=== PATIENT | female | born 1995 | race Caucasian/White ===

== ENCOUNTER 2019-07-07 11:13 | Inpatient (IN) ==
[2019-07-06 11:57] LABS: Basophils % 0.2 %; Eosinophils # 0.1 K/mcL (0.0-0.6); Eosinophils % 0.5 %; Hematocrit 36.7 % (35.3-44.9); Hemoglobin 11.7 g/dL (11.5-15.4); Immature Granulocytes % 0.3 % (0-4); Lymphocytes % 22.3 %; Mean Corpuscular HGB Conc 31.9 g/dL (31.6-35.5); Mean Corpuscular Hemoglobin 27.4 pg (28.0-33.3); Mean Corpuscular Volume 85.9 fL (83.0-100.0); Mean Platelet Volume 10.3 fL (9.4-12.4); Monocytes # 0.4 K/mcL (0.0-1.3); Monocytes % 3.9 %; Neutrophils # 6.6 K/mcL (1.6-8.9); Platelet Count 259 K/mcL (140-400); Red Blood Count 4.27 M/mcL (3.82-4.97); Red Cell Distribution Width 14.3 % (11.5-14.5); Segmented Neutrophils % 72.8 %; White Blood Count 9.1 K/mcL (4.3-11.1)
[2019-07-06 12:08] LABS: Amphetamine Screen,Urine Negative ng/mL (Cutoff=1000); Barbiturate Screen,Urine Negative ng/mL (Cutoff=200); Benzodiazepines Screen,Urine Negative ng/mL (Cutoff=200); Cannabinoid Screen,Urine Negative ng/mL (Cutoff = 50); Cocaine Screen,Urine Negative ng/mL (Cutoff= 300); Opiate Screen,Urine Negative ng/mL (Cutoff=300); Phencyclidine Screen,Urine Negative ng/mL (Cutoff=25)
[2019-07-06] MEDS: Ringers Solution, Lactated 1,000 ML IVC SCH ×2 (12:56→17:29)
[~2019-07-07 11:13] MED LIST: *HR* FentaNYL (PF) 100 MCG/2 ML VIAL EP ONE; *HR* FentaNYL (PF) 100 MCG/2 ML VIAL IVP PRN; 0.9 % Sodium Chloride 1,000 ML ONE; Azithromycin 500 MG in 0.9 % Sodium Chloride 250 ML IVPB ONE; CeFAZolin Syr 3,000MG/30 ML 3,000 MG/30 ML SYRINGE IVPB ONE; EPHEDrine 50 MG/ML VIAL IVP ONE; EPHEDrine 50 MG/ML VIAL IVP PRN; Epidural Premix (fent/bupiv) 110 ML EP ONE; Famotidine 20 MG/2 ML VIAL IVP PRN; Lidocaine 1% 20 ML MDV INFILT PRN; Metoclopramide 10 MG/2 ML VIAL IVP PRN; Naloxone 0.4 MG/ML INJ IVP PRN; Ondansetron 4 MG/2 ML VIAL IVP PRN; Oxytocin 20 units/ LR 1000 mL 20 UNIT/1,000 ML BAG IVC SCH; Ropivacaine/PF 0.2% 20 ML VIAL EP ONE; Terbutaline 1 MG/ML VIAL SQ ONE
[2019-07-07] MEDS ORDERED: Epidural Premix (fent/bupiv) 110 ML EP SCH (11:15)
[2019-07-07] MEDS ORDERED: Ropivacaine/PF 0.2% 20 ML VIAL ONE (12:20)
[2019-07-07] MEDS ORDERED: Oxytocin 20 units/ LR 1000 mL 20 UNIT/1,000 ML BAG IVC ONE (17:12)
[2019-07-07] MEDS ORDERED: Measles/Mumps/Rubella Vacc 0.5 ML VIAL SQ PRN (17:12)
[2019-07-07] MEDS ORDERED: Lanolin 7 G OINT...G. TP PRN (17:12)
[2019-07-07] MEDS ORDERED: Benzocaine/Menthol 56 GM AEROSOL SPRAY TP PRN (17:12)
[2019-07-07] MEDS ORDERED: Acetaminophen 325 MG TABLET PO PRN (17:12)
[2019-07-07] MEDS ORDERED: Oxytocin 20 units/ LR 1000 mL 20 UNIT/1,000 ML BAG IVC SCH (17:12)
[2019-07-07] MEDS: Ibuprofen 600 MG TABLET PO PRN (17:51)
[2019-07-08 07:36] LABS: Basophils % 0.3 %; Eosinophils # 0.2 K/mcL (0.0-0.6); Eosinophils % 1.5 %; Hematocrit 34.5 % (35.3-44.9); Hemoglobin 11.1 g/dL (11.5-15.4); Immature Granulocytes % 0.4 % (0-4); Lymphocytes # 2.2 K/mcL (0.6-4.6); Lymphocytes % 20.7 %; Mean Corpuscular HGB Conc 32.2 g/dL (31.6-35.5); Mean Corpuscular Volume 86.9 fL (83.0-100.0); Mean Platelet Volume 10.7 fL (9.4-12.4); Monocytes # 0.6 K/mcL (0.0-1.3); Monocytes % 5.1 %; Neutrophils # 7.8 K/mcL (1.6-8.9); Platelet Count 259 K/mcL (140-400); Red Blood Count 3.97 M/mcL (3.82-4.97); Red Cell Distribution Width 14.5 % (11.5-14.5); White Blood Count 10.8 K/mcL (4.3-11.1)
[2019-07-08 07:51] VITALS: BP 110/69
[2019-07-08] MEDS: Ibuprofen 600 MG TABLET PO PRN (08:46)
[2019-07-08] MEDS ORDERED: Prenatal Vit/FA 1 EACH TABLET PO SCH (09:00)
== END 2019-07-08 17:15 | disposition home or self-care (01) | DRG 806 ==
LOC: 1NENULAB → 1NENUOBS 16:54
PROVIDERS: ADMIT Obstetrics & Gynecology; ATTEND Obstetrics & Gynecology

== ENCOUNTER 2021-05-10 03:53 | Inpatient (IN) ==
[~2021-05-10 03:53] MED LIST changes: -*HR* FentaNYL (PF) 100 MCG/2 ML VIAL EP ONE; -*HR* FentaNYL (PF) 100 MCG/2 ML VIAL IVP PRN; +*HR* Nalbuphine 10 MG/ML AMPUL IV PRN; -0.9 % Sodium Chloride 1,000 ML ONE; -Azithromycin 500 MG in 0.9 % Sodium Chloride 250 ML IVPB ONE; +Azithromycin 500 MG in 0.9 % Sodium Chloride 250 ML IVPB PRN; -CeFAZolin Syr 3,000MG/30 ML 3,000 MG/30 ML SYRINGE IVPB ONE; -EPHEDrine 50 MG/ML VIAL IVP ONE; -EPHEDrine 50 MG/ML VIAL IVP PRN; -Epidural Premix (fent/bupiv) 110 ML EP ONE; -Lidocaine 1% 20 ML MDV INFILT PRN; -Oxytocin 20 units/ LR 1000 mL 20 UNIT/1,000 ML BAG IVC SCH; -Ropivacaine/PF 0.2% 20 ML VIAL EP ONE; -Terbutaline 1 MG/ML VIAL SQ ONE
[2021-05-10] MEDS ORDERED: Ringers Solution, Lactated 1,000 ML IVC SCH (04:00)
[2021-05-10 04:43] LABS: White Blood Count 9.6 K/mcL (4.3-11.1)
[2021-05-10 04:44] LABS: Basophils % 0.2 %; Eosinophils # 0.1 K/mcL (0.0-0.6); Eosinophils % 0.6 %; Hemoglobin 11.5 g/dL (11.5-15.4); Immature Granulocytes % 0.4 % (0-4); Lymphocytes # 2.4 K/mcL (0.6-4.6); Mean Corpuscular HGB Conc 31.9 g/dL (31.6-35.5); Mean Corpuscular Hemoglobin 27.3 pg (28.0-33.3); Mean Corpuscular Volume 85.3 fL (83.0-100.0); Mean Platelet Volume 11.1 fL (9.4-12.4); Monocytes # 0.4 K/mcL (0.0-1.3); Monocytes % 3.6 %; Neutrophils # 6.7 K/mcL (1.6-8.9); Platelet Count 261 K/mcL (140-400); Red Blood Count 4.22 M/mcL (3.82-4.97); Red Cell Distribution Width 13.7 % (11.5-14.5); Segmented Neutrophils % 70.2 %
[2021-05-10 04:52] LABS: Amphetamine Screen,Urine Negative ng/mL (Cutoff=1000); Barbiturate Screen,Urine Negative ng/mL (Cutoff=200); Benzodiazepines Screen,Urine Negative ng/mL (Cutoff=200); Cannabinoid Screen,Urine Negative ng/mL (Cutoff = 50); Cocaine Screen,Urine Negative ng/mL (Cutoff= 300); Opiate Screen,Urine Negative ng/mL (Cutoff=300); Phencyclidine Screen,Urine Negative ng/mL (Cutoff=25)
[2021-05-10] MEDS ORDERED: Oxytocin 20 units/ LR 1000 mL 20 UNIT/1,000 ML BAG IVC SCH ×2 (05:00→15:31)
[2021-05-10] MEDS ORDERED: Lidocaine 1% 20 ML MDV ONE (12:44)
[2021-05-10] MEDS ORDERED: Measles/Mumps/Rubella Vacc 0.5 ML VIAL SQ PRN (15:31)
[2021-05-10] MEDS ORDERED: Ondansetron ODT 4 MG TAB.RAPDIS SL PRN (15:31)
[2021-05-10] MEDS ORDERED: Benzocaine/Menthol 56 GM AEROSOL SPRAY TP PRN (15:31)
[2021-05-10] MEDS: Acetaminophen 325 MG TABLET PO SCH ×2 (16:05→21:44)
[2021-05-10] MEDS: Lanolin 7 G OINT...G. TP PRN ×2 (16:07→21:45)
[2021-05-10] MEDS: Ibuprofen 600 MG TABLET PO SCH (21:45)
[2021-05-11] MEDS: Ibuprofen 600 MG TABLET PO SCH (04:37)
[2021-05-11] MEDS: Acetaminophen 325 MG TABLET PO SCH (04:38)
[2021-05-11 05:12] VITALS: O2SAT 98
[2021-05-11 05:22] LABS: Basophils % 0.3 %; Eosinophils # 0.1 K/mcL (0.0-0.6); Eosinophils % 1.4 %; Hematocrit 28.8 % (35.3-44.9); Immature Granulocytes % 0.3 % (0-4); Lymphocytes # 2.7 K/mcL (0.6-4.6); Mean Corpuscular HGB Conc 32.3 g/dL (31.6-35.5); Mean Corpuscular Hemoglobin 27.9 pg (28.0-33.3); Mean Corpuscular Volume 86.5 fL (83.0-100.0); Mean Platelet Volume 11.5 fL (9.4-12.4); Monocytes # 0.5 K/mcL (0.0-1.3); Monocytes % 5.5 %; Neutrophils # 5.4 K/mcL (1.6-8.9); Platelet Count 234 K/mcL (140-400); Red Blood Count 3.33 M/mcL (3.82-4.97); Segmented Neutrophils % 61.5 %; White Blood Count 8.7 K/mcL (4.3-11.1)
[2021-05-11 05:24] LABS: Hemoglobin 9.3 g/dL (11.5-15.4)
[2021-05-11 07:18] VITALS: BP 107/68; PULSE 85; TEMP 98
[2021-05-11] MEDS ORDERED: Prenatal Vit/FA 1 EACH TABLET PO SCH (09:00)
== END 2021-05-11 14:00 | disposition home or self-care (01) | DRG 806 ==
LOC: 1NENULAB → 1NENUOBS 15:11
PROVIDERS: ADMIT Advanced Practice Midwife; ATTEND Advanced Practice Midwife